=== PATIENT | male | born 1940 | race Caucasian/White ===

== ENCOUNTER 2024-01-06 17:22 | Emergency (ER) | payer OTHER, SELFPAY ==
[2024-01-06 17:38] VITALS: BP 174/77; PULSE 95; RESP 18; TEMP 38.3; O2SAT 92
--- NOTE | 2024-01-06 18:08 | XRR_ITS ---
PROCEDURE INFORMATION: Exam: XR Chest Exam date and time: 01/06/2024 6:22 PM Age: 83 years old Clinical indication: Shortness of breath; Additional info: Possible sepsis TECHNIQUE: Imaging protocol: Radiologic exam of the chest. Views: 1 view. COMPARISON: No relevant prior studies available. FINDINGS: Lungs: Bibasilar atelectasis versus minimal infiltrate. Pleural spaces: Unremarkable. No pleural effusion. No pneumothorax. Heart/Mediastinum: Mild cardiomegaly Bones/joints: Unremarkable. XR/XR chest 1V portable 12530 IMPRESSION: 1. Bibasilar atelectasis versus minimal infiltrate. 2. Mild cardiomegaly
[2024-01-06] MEDS: sodium chloride 0.9% 2,381.37 ML 2381.36999999999989 ML IV (19:03)
[2024-01-06 19:16] LABS: Alanine Aminotransferase 84 U/L (0-41); Albumin Level 3.8 g/dL (3.5-5.2); Alkaline Phosphatase 96 U/L (40-130); Anion Gap 15.2 (5-19); Aspartate Amino Transferase 94 U/L (0-40); Blood Urea Nitrogen 17 mg/dL (8-23); Calcium 9.2 mg/dL (8.5-10.5); Carbon Dioxide 22 mmol/L (22-29); Chloride 103 mmol/L (98-107); Creatinine Clr Calc Pharmacy 66.7446; Globulin 3.7 g/dL (1.3-4.6); Glucose 129 mg/dL (65-115); Osmolality Calculated 285 mOsm/kg (285-295); Potassium 4.2 mmol/L (3.5-5.1); Sodium 136 mmol/L (136-145); Total Bilirubin 0.7 mg/dL (0.15-1.2); Total Protein 7.5 g/dL (6.6-8.7)
[2024-01-06 19:17] VITALS: BP 182/92; PULSE 86; RESP 16; O2SAT 96
[2024-01-06 19:17] LABS: Lactic Sepsis W/Reflex 1.3 mmol/L (0.5-2.2)
[2024-01-06 19:24] LABS: Basophils % 0.1 %; Hematocrit 48.7 % (37-53); Lymphocytes # 0.8 10^3/uL (0.8-4.8); Mean Corpuscular Hemoglobin 33.1 pg (27-33); Mean Corpuscular Volume 93.8 fl (82-101); Mean Platelet Volume 9.5 fL (7.4-10.4); Monocytes # 0.5 10^3/uL (0.2-0.9); Monocytes % 7.8 %; Neutrophils # 5.48 10^3/uL (1.8-7.7); Neutrophils % 80.7 %; Nucleated Red Blood Cells % 0 %; Platelet Count 152 10^3/cmm (157-399); Red Blood Count 5.19 10^6/uL (3.85-5.65); Red Cell Distribution Width 13.9 % (12.1-15.1)
[2024-01-06 19:26] LABS: Mean Corpuscular HGB Conc 35.3 g/dL (30-55)
[2024-01-06 19:29] LABS: Add Urine Microscopic? YES; Bilirubin Urine Neg (Negative); Blood Urine Neg (Negative); Glucose Urine UA Norm (Normal); Ketones Urine 1+ (Negative); Leukocyte Esterase Urine Negative (Negative); Nitrate Urine Negative (Negative); Protein Urine Trace (Negative); Urine Appearance Clear (CLEAR); Urine Color Dark Yellow (Yellow); Urobilinogen Urine 4 mg/dL (Negative); pH Urine 5 (5-7)
[2024-01-06 19:30] LABS: Add Urine Culture? No; Bacteria Urine 1+ /hpf; Mucus Urine 1+ /hpf; Squamous Epithelial Cell Urine RARE /hpf (0-5); WBC Urine 0-4 /hpf (0-5)
--- NOTE | 2024-01-06 19:52 | W.ED.FEVER ---
HPI - Fever General: Chief Complaint: Fever Stated Complaint: loss of balance, chills, repeated falls Time Seen by Provider: 01/06/24 18:53 History of Present Illness: Patient presents to the ER with complaints of fever and chills and loss of balance off and on for the last week but worsening. Patient denies any other complaints such as cough cold sore throat runny nose nausea vomiting diarrhea constipation abdominal pain pain burning frequency with urination. Patient says he has never been off balance like this but denies any ear pain. Patient does wear hearing aids. Patient says his has been off-and-on running a fever to but she has not lost her balance. Review of Systems General: Reports: 10 or more systems reviewed and unremarkable except in HPI and below Physical Exam Const: COMMON NORMALS: no acute distress, average body habitus, patient oriented x3, no limitations, healthy appearing, alert and well nourished HENMT: COMMON NORMALS: atraumatic, hearing grossly normal bilaterally, external ears normal, EAC's normal, TM's normal bilaterally, Normal external nose present, moist oral mucous membranes and oropharynx normal HEAD & SCALP: atraumatic NOSE: Normal external nose present EXTERNAL EAR: Yes external ears normal EXTERNAL AUDITORY CANAL: EAC's normal TYMPANIC MEMBRANE: TM's normal bilaterally Eye: COMMON NORMALS: Equal, round and reactive pupils present, EOMs intact bilaterally, conjunctivae normal and no scleral icterus CONJUNCTIVA: Yes conjunctivae normal PUPIL: Yes Equal, round and reactive pupils present Neck/C-Spine: COMMON NORMALS: full ROM, no lymphadenopathy, supple, no meningeal signs, no JVD and Thyroid normal THYROID: Thyroid normal Chest: COMMONS NORMALS: normal inspection of the chest and normal palpation of entire chest wall Resp: COMMON NORMALS: normal respiratory effort, No retractions, No use of accessory muscles and clear to auscultation bilaterally AUSCULTATION: clear to auscultation bilaterally Cardio: COMMON NORMALS: no JVD, regular rate, regular rhythm, S1 normal heart sound present, S2 normal heart sound present, No gallops present (Cardio), No clicks present (Cardio), No murmurs present (Cardio) and No rub (Cardio) RATE: regular rate RHYTHM: regular rhythm HEART SOUNDS: S1 normal heart sound present and S2 normal heart sound present GI: COMMON NORMALS: Normal to inspection, nondistended, normoactive bowel sounds present, Soft to palpation, non-tender, No hepatosplenomegaly present and no masses PALPATION: Yes Soft to palpation and Yes No hepatosplenomegaly present Neuro: COMMON NORMALS: patient oriented x3 SENSORIUM/ORIENTATION: Yes alert MENINGEAL SIGNS: Yes no meningeal signs Course Vital Signs: Vital signs: Vital Signs Temperature 100.9 F H 01/06/24 17:38 Pulse Rate 89 01/06/24 20:30 Respiratory Rate 16 01/06/24 20:30 Blood Pressure 162/92 01/06/24 20:30 Pulse Oximetry 96 01/06/24 20:30 Oxygen Delivery Me thod Room Air 01/06/24 17:38 MDM - Fever Medical Decision Making Physical exam was performed lab work was obtained as well as chest x-ray and urinalysis, lab work was essentially benign except for mildly elevated liver enzymes, chest x-ray showed bibasilar atelectasis versus minimal infiltrate. Since patient has a fever and has possible infiltrate we will go ahead and treat him with antibiotics and Tylenol. Patient has a respiratory panel pending. We will call him with any positive results. These results were discussed with the patient and he is okay with treatment. Medical Records I reviewed the patient's medical records. Lab Data I reviewed the patient's lab results. 01/06/24 18:48 01/06/24 18:48 Radiology Impressions Chest X-Ray 01/06/24 18:08 IMPRESSION: 1. Bibasilar atelectasis versus minimal infiltrate. 2. Mild cardiomegaly Laboratory Results WBC 6.80 10^3/uL (3.29-11.43) 01/06/24 18:48 RBC 5.19 10^6/uL (3.85-5.65) 01/06/24 18:48 Hgb 17.20 g/dL (11.27-16.99) H 01/06/24 18:48 Hct 48.7 % (37-53) 01/06/24 18:48 MCV 93.8 fl (82-101) 01/06/24 18:48 MCH 33.1 pg (27-33) H 01/06/24 18:48 MCHC 35.3 g/dL (30-55) 01/06/24 18:48 RDW 13.9 % (12.1-15.1) 01/06/24 18:48 Plt Count 152 10^3/cmm (157-399) L 01/06/24 18:48 MPV 9.5 fL (7.4-10.4) 01/06/24 18:48 Neut % (Auto) 80.7 % 01/06/24 18:48 Lymph % (Auto) 11.0 % 01/06/24 18:48 [place] % (Auto) 7.8 % 01/06/24 18:48 Eos % (Auto) 0.0 % 01/06/24 18:48 Baso % (Auto) 0.1 % 01/06/24 18:48 Neut # (Auto) 5.48 10^3/uL (1.8-7.7) 01/06/24 18:48 Lymph # (Auto) 0.8 10^3/uL (0.8-4.8) 01/06/24 18:48 [place] # (Auto) 0.5 10^3/uL (0.2-0.9) 01/06/24 18:48 Eos # (Auto) 0.0 10^3/uL (0.0-0.8) 01/06/24 18:48 Baso # (Auto) 0.0 10^3/uL (0.0-0.1) 01/06/24 18:48 Nucleated RBC % (auto) 0 % 01/06/24 18:48 Nucleated RBCs # 0.0 /100WBC 01/06/24 18:48 Sodium 136 mmol/L (136-145) 01/06/24 18:48 Potassium 4.2 mmol/L (3.5-5.1) 01/06/24 18:48 Chloride 103 mmol/L (98-107) 01/06/24 18:48 Carbon Dioxide 22 mmol/L (22-29) 01/06/24 18:48 Anion Gap 15.2 (5-19) 01/06/24 18:48 BUN 17 mg/dL (8-23) 01/06/24 18:48 Creatinine 0.8 mg/dL (0.7-1.2) 01/06/24 18:48 GFR Calculation Not Reportable 01/06/24 18:48 Glucose 129 mg/dL (65-115) H 01/06/24 18:48 Calculated Osmolality 285 mOsm/kg (285-295) 01/06/24 18:48 Lactic Acid 1.3 mmol/L (0.5-2.2) 01/06/24 18:48 Calcium 9.2 mg/dL (8.5-10.5) 01/06/24 18:48 Total Bilirubin 0.7 mg/dL (0.15-1.2) 01/06/24 18:48 AST 94 U/L (0-40) H 01/06/24 18:48 ALT 84 U/L (0-41) H 01/06/24 18:48 Alkaline Phosphatase 96 U/L (40-130) 01/06/24 18:48 Total Protein 7.5 g/dL (6.6-8.7) 01/06/24 18:48 Albumin 3.8 g/dL (3.5-5.2) 01/06/24 18:48 Globulin 3.7 g/dL (1.3-4.6) 01/06/24 18:48 Procalcitonin 0.43 ng/mL (0-0.5) 01/06/24 18:48 Urine Color Dark yellow (Yellow) 01/06/24 19:08 Urine Appearance Clear (CLEAR) 01/06/24 19:08 Urine pH 5 (5-7) 01/06/24 19:08 Ur Specific [place] 1.020 (1.005-1.030) 01/06/24 19:08 Urine Protein Trace (Negative) 01/06/24 19:08 Urine Glucose (UA) Norm (Normal) 01/06/24 19:08 Urine Ketones 1+ (Negative) H 01/06/24 19:08 Urine Blood Neg (Negative) 01/06/24 19:08 Urine Nitrate Negative (Negative) 01/06/24 19:08 Urine Bilirubin Neg (Negative) 01/06/24 19:08 Urine Urobilinogen 4 mg/dL (Negative) H 01/06/24 19:08 Ur Leukocyte Esterase Negative (Negative) 01/06/24 19:08 Urine RBC None /hpf (0-2) 01/06/24 19:08 Urine WBC 0-4 /hpf (0-5) H 01/06/24 19:08 Ur Squamous Epith Cells Rare /hpf (0-5) 01/06/24 19:08 Amorphous Sediment Not Reportable 01/06/24 19:08 Urine Bacteria 1+ /hpf (NONE) H 01/06/24 19:08 Urine Mucus 1+ /hpf 01/06/24 19:08 All radiology interpretation(s) finalized by discharge Discharge Plan Discharge Patient Disposition: Home Clinical Impression: Pneumonia, Fever, Dizziness Condition: Stable Prescriptions: New Bactrim DS 800-160 mg tablet 1 tab PO BID Qty: 14 0RF sulfamethoxazole-trimethoprim [Bactrim DS] 800-160 mg tablet 1 tab PO BID Qty: 14 0RF Discharge Orders: Discharge ED (Routine); Ordered 01/06/24 Ordered By: Kaleb Ojeda Patient Instructions: Fever - Adult, Community Acquired Pneumonia (DC), Dizziness (ED) Activity Restrictions/Additional Instructions: Your lab work was essentially unremarkable except your liver enzymes were slightly elevated. You may want to check these out in the near future. Your x-ray did show possible very mild pneumonia. Therefore we will treat with antibiotics for this. If this does not relieve your dizziness you may need to get a referral to ear nose and throat doctor for further evaluation and treatment. Coding Level of Care Code ED Loop Drier Operator for Anne-Marie Peña
--- NOTE | 2024-01-06 19:57 | ECG_ITS ---
[facility] Test Date: 2024-01-06 Pat Name: Jony Mccracken Department: Room: Gender: Male [employer] Anne[employer] Operator: : 1940 Requested By: Rosetta Toscano Order Number: [id number] Pamela MD: Ivan Blackburn M.D. Measurements Intervals [place] Rate: 93 P: 7 VT: 135 QRS: -44 QRSD: 126 T: -11 QT: 390 QTc: 486 Interpretive Statements SINUS RHYTHM WITH FREQUENT VENTRICULAR PREMATURE COMPLEXES LEFT AXIS DEVIATION [QRS AXIS < -30] RIGHT BUNDLE BRANCH BLOCK [120+ ms QRS DURATION, UPRIGHT V1, 40+ ms S IN I/aVL/V4/V5/V6] No previous ECG available for comparison Electronically Signed On 01-10-2024 13:46:50 CDT by Ivan Blackburn M.D. [id number]
[2024-01-06 20:30] VITALS: BP 162/92; PULSE 89; RESP 16; O2SAT 96
[2024-01-06 20:31] LABS: Procalcitonin 0.43 ng/mL (0-0.5)
[2024-01-06] MEDS: acetaminophen 500 mg Tablet 1000 MG PO (21:11)
[2024-01-06] MEDS: sulfamethoxazole-trimeth DS 160-800 mg Tablet 1 TAB PO (21:11)
[2024-01-06 21:12] VITALS: TEMP 37.3
[2024-01-06 21:18] VITALS: BP 162/92; PULSE 89; RESP 16; TEMP 37.3; O2SAT 96
[2024-01-06 21:50] LABS: Adenovirus Not Detected (NOT DETECT); Chlamydia Pneumoniae Not Detected (NOT DETECT); Coronavirus 229E,HKU1,NL63,OC4 Not Detected (NOT DETECT); Human Metapneumovirus Not Detected (NOT DETECT); Human Rhinovirus/Enterovirus Not Detected (NOT DETECT); Influenza A Not Detected (NOT DETECT); Influenza A H1 Not Detected (NOT DETECT); Influenza A H1-2009 Not Detected (NOT DETECT); Influenza A H3 Not Detected (NOT DETECT); Influenza B Not Detected (NOT DETECT); Mycoplasma Pneumoniae Not Detected (NOT DETECT); Parainfluenza Virus Type 1 Not Detected (NOT DETECT); Parainfluenza Virus Type 2 Not Detected (NOT DETECT); Parainfluenza Virus Type 3 Not Detected (NOT DETECT); Parainfluenza Virus Type 4 Not Detected (NOT DETECT); Respiratory Syncytial Virus A Not Detected (NOT DETECT); Respiratory Syncytial Virus B Not Detected (NOT DETECT); SARS-COV-2 Not Detected (NOT DETECT)
== END 2024-01-06 21:19 | disposition home or self-care (01) ==
PROVIDERS: Emergency Medicine; Emergency Provider Emergency Medicine
DX: R42 Dizziness and giddiness (principal); J18.9 Pneumonia, unspecified organism; R50.9 Fever, unspecified
CPT/HCPCS: 36415; 71045; 80053; 81001; 83605; 84145; 85025; 87040; 87486; 87581; 87633; 93005; 96360; 96361; 99285; J7030